=== PATIENT | female | born 1950 | race Caucasian/White ===

== ENCOUNTER → 2016-12-23 | Outpatient (CLI) | payer BC ==
[2016-12-23 09:39] LABS: BASO % 0.5 %; BASO ABS # 0.03 K/uL (0-0.2); COMPLETE YES; EOS % 3.7 %; HEMATOCRIT 38.2 % (37-47); IG% 0.2 %; LYMPH ABS # 1.24 K/uL (1.2-3.4); MEAN CELL VOLUME 88.8 fL (80-100); MEAN CORPUSCULAR HGB CONC 33.8 g/dl (32-36); MEAN PLATELET VOLUME 10.3 fL (7.4-10.4); MONO % 8.1 %; NEUT % 66.5 %; PLATELET COUNT 255 K/uL (130-400); WHITE BLOOD COUNT 5.91 K/uL (4.8-10.8)
[2016-12-23 14:20] LABS: LYME DISEASE AB IGG NEG (NEG); LYME DISEASE AB IGM NEG (NEG)
== END | disposition home or self-care (01) ==
LOC: C.LAB 07:58
DX: M19.90 Unspecified osteoarthritis, unspecified site (principal)

== ENCOUNTER → 2017-02-18 | Outpatient (CLI) | payer BC ==
[2017-02-18 09:54] LABS: ESTIMATED AVERAGE GLUCOSE 126 mg/dl; HA1C FLAG Normal (Normal)
[2017-02-18 09:56] LABS: ALT/SGPT 19 U/L (12-78); AST/SGOT 17 U/L (15-37); BLOOD UREA NITROGEN 11 mg/dl (7-18); BUN/CREATININE RATIO 13.3 (10-20); CALCIUM 9.3 mg/dl (8.5-10.1); CARBON DIOXIDE 28 mmol/L (21-32); CHLORIDE 106 mmol/L (98-107); CREATININE 0.83 mg/dl (0.60-1.20); GLUCOSE 105 mg/dl (70-99); POTASSIUM 4.3 mmol/L (3.5-5.1); SODIUM 142 mmol/L (136-145)
== END | disposition home or self-care (01) ==
LOC: C.LAB 08:02
DX: E88.81 Metabolic syndrome and other insulin resistance (principal); E78.5 Hyperlipidemia, unspecified

== ENCOUNTER → 2017-08-17 | Outpatient (CLI) | payer BC | END | disposition home or self-care (01) | LOC: C.PAPS 12:39 | PROVIDERS: ATTEND Obstetrics & Gynecology | DX: Z01.419 Encounter for gynecological examination (general) (routine) without abnormal findings (principal); N95.2 Postmenopausal atrophic vaginitis ==

== ENCOUNTER → 2017-08-17 | Outpatient (CLI) | payer BC ==
[2017-08-17 11:39] LABS: URINE APPEARANCE TURBID (CLEAR); URINE BILIRUBIN NEG (NEG); URINE COLOR YELLOW; URINE EPITHELIAL CELL AUTO 0-5 /lpf (0-5); URINE NITRITE POS (NEG); URINE SPECIFIC GRAVITY 1.018 (1.000-1.030); UROBILINOGEN NEG (NEG)
[2017-08-17 11:43] LABS: MANUAL MICROSCOPIC REQUIRED? NO; REVIEW REQ? NO
== END | disposition home or self-care (01) ==
LOC: C.LABSPEC 11:12
PROVIDERS: ATTEND Obstetrics & Gynecology
DX: R39.9 Unspecified symptoms and signs involving the genitourinary system (principal)

== ENCOUNTER → 2017-08-31 | Outpatient (CLI) | payer BC ==
[2017-08-31 12:34] LABS: ESTIMATED AVERAGE GLUCOSE 128 mg/dl; HA1C FLAG Normal (Normal)
[2017-08-31 12:37] LABS: AST/SGOT 25 U/L (15-37); BLOOD UREA NITROGEN 8 mg/dl (7-18); BUN/CREATININE RATIO 11.1 (10-20); CALCIUM 9.4 mg/dl (8.5-10.1); CARBON DIOXIDE 29 mmol/L (21-32); CHLORIDE 107 mmol/L (98-107); CREATININE 0.76 mg/dl (0.60-1.20); GLUCOSE 95 mg/dl (70-99); POTASSIUM 4.1 mmol/L (3.5-5.1); SODIUM 141 mmol/L (136-145)
[2017-08-31 12:40] LABS: ALT/SGPT 20 U/L (12-78); CHOLESTEROL 116 mg/dl (0-200); CHOLESTEROL/HDL RATIO 2.3; HDL CHOLESTEROL 50 mg/dl; LDL CHOLESTEROL CALCULATED 52 mg/dl; TRIGLYCERIDES 72 mg/dl (0-150); VERY LOW DENSITY LIPOPROT CALC 14 mg/dl
== END | disposition home or self-care (01) ==
LOC: C.LAB 10:00
DX: E78.5 Hyperlipidemia, unspecified (principal); R73.9 Hyperglycemia, unspecified

== ENCOUNTER → 2017-10-03 | Outpatient (CLI) | payer BC ==
--- NOTE | 2017-10-04 07:42 | MAMMOGRAPHY REPORT ---
BILATERAL DIGITAL SCREENING MAMMOGRAM WITH CAD: 10/03/2017 CLINICAL HISTORY: Routine screening. Patient has no complaints. TECHNIQUE: Bilateral CC and MLO views were obtained. Current study was also evaluated with a Compute r Aided Detection (CAD) system. COMPARISON: Comparison is made to exams dated: 09/29/2016 mammogram, 09/18/2015 mammogram, 09/13/2014 mammogram, 09/11/2013 mammogram, 09/06/2012 mammogram, and 09/06/2011 mammogram - [facility]. BREAST COMPOSITION: The tissue of both breasts is heterogeneously dense, which may obscure small mas ses. FINDINGS: There are a few scattered benign rim and round microcalcifications in the breasts. No susp icious mass, architectural distortion or cluster of suspicious microcalcifications is seen. IMPRESSION: ACR BI-RADS CATEGORY 1: NEGATIVE There is no mammographic evidence of malignancy. A 1 year screening mammogram is recommended. The pa tient will receive written notification of the results. Approximately 10% of breast cancers are not detected with mammography. A negative mammographic report should not delay biopsy if a clinically suggestive mass is present. Angelica Madden M.D. ay/:10/03/2017 15:42:03 Machine Striper: Andie KING(R)(Lo)(BD), [facility] letter sent: Normal 1/2 BI-RADS Code: ACR BI-RADS Category 1: Negative
== END | disposition home or self-care (01) ==
LOC: C.MAMM 08:21
DX: Z12.31 Encounter for screening mammogram for malignant neoplasm of breast (principal)

== ENCOUNTER → 2018-02-28 | Outpatient (CLI) | payer BC ==
[2018-02-28 12:40] LABS: ALT/SGPT 19 U/L (12-78); AST/SGOT 20 U/L (15-37); BLOOD UREA NITROGEN 14 mg/dl (7-18); CALCIUM 9.3 mg/dl (8.5-10.1); CARBON DIOXIDE 31 mmol/L (21-32); CHOLESTEROL 123 mg/dl (0-200); CREATININE 0.91 mg/dl (0.60-1.20); GLUCOSE 101 mg/dl (70-99); POTASSIUM 4.1 mmol/L (3.5-5.1); SODIUM 138 mmol/L (136-145)
[2018-02-28 12:43] LABS: LDL CHOLESTEROL CALCULATED 57 mg/dl
== END | disposition home or self-care (01) ==
LOC: C.LAB 10:14
DX: E88.81 Metabolic syndrome and other insulin resistance (principal); E78.5 Hyperlipidemia, unspecified

== ENCOUNTER → 2018-04-06 | Outpatient (CLI) | payer BC | END | disposition home or self-care (01) | LOC: C.MAMM 15:25 | DX: M85.88 Other specified disorders of bone density and structure, other site (principal) ==

== ENCOUNTER 2024-01-27 02:36 | Observation (INO) ==
--- NOTE | 2024-01-27 02:50 | Emergency Department Note ---
Impression & Plan Acute cholecystitis, Chest pain, Abdominal pain, epigastric, Transaminitis ED Provider Note HISTORY OF PRESENT ILLNESS: Patient is a 73-year-old female presenting with chest pain. Patient reports that she developed substernal chest pain starting around 9 PM on 01/26/2024. Reports that she just thought it might have been due to her sports bra being too tight and she took her sports bra off at 11 PM and was still having the pain. Reports the pain was persistent throughout the night and at 1:30 AM she woke her daughter up. She denies any history of heart disease. Denies any history of cardiac stents. She is not on any anticoagulation. She was given 324 mg of aspirin and nitro prehospital and reports that her pain has gone down to a 3 out of 10. She states the pain is present when she tries to take a deep breath. Locates the pain to the substernal region without radiation. Denies any associated shortness of breath. She does report that she vomited when her daughter called 911 this evening. Denies any lightheadedness or dizziness. Denies any abdominal pain. Denies any DVT or PE history. She does not take any medications other than vitamins daily. Denies any recent fevers or cough. ROS: as above PHYSICAL EXAM: Constitutional: Patient appears in no acute distress. HENT: Head: Normocephalic and atraumatic. Eyes: EOMI, PERRL Mouth/Throat: Mucous membranes moist. Neck: Trachea midline. Neck supple. Cardiovascular: RRR, No murmurs, rubs or gallops. Intact distal pulses. Pulmonary/Chest: No respiratory distress. Breath sounds clear and equal bilaterally. No wheezes or rales. Abdominal: Abdomen soft, no tenderness, rebound or guarding. Musculoskeletal: No edema, tenderness or deformity noted. Skin: Warm and dry. No rash, erythema, pallor or cyanosis Psychiatric: Appropriate mood and affect for situation. Neurological: Alert and keenly responsive. CN II-XII grossly intact, moving all extremities equally and fully. MDM: - Vitals signs stable. - History obtained via patient. History as above. - Chronic conditions affecting care: HLD; prediabetes - Differential diagnoses include, but are not limited to: Acute coronary syndrome; pulmonary embolism; dissection; tension pneumothorax; esophageal rupture; pneumonia - Order placed for continuous cardiac monitoring. At this time, monitor showed rate of 85 bpm with normal sinus rhythm, per my interpretation. - External medical records reviewed. Primary care visit note dated 11/28/2023 was reviewed. Patient has a history of prediabetes and hyperlipidemia. Patient is not currently on a statin given her low risk score per documentation. - EKG interpreted by myself showed normal sinus rhythm. Rate 78 bpm. QT 406. No acute ischemic changes. - Laboratory workup interpreted by myself showed slight leukocytosis (WBC 10.94) with left shift; stable electrolytes; normal PT/INR; elevated total bilirubin (1.2); transaminitis (AST 269; ALT 84); normal lipase - CXR negative for pneumonia, per my interpretation. Noted to have some perihilar opacities bilaterally - CT abdomen/pelvis with IV contrast obtained, given patient's symptoms and her transaminitis. CT showed diffuse gallbladder wall thickening wiht enhancement wihtin the wall and adjacent stranding concerning for acute cholecystitis. - IV zosyn ordered. - Low risk HEART score. - US RUQ showed cholelithiasis and findings concerning for acute cholecystitis. - Plan for admission to hospitalist service with general surgery consultation. - Discussion was had with insurance case manager about patient's case and need for admission - Hospitalist consulted for admission - Patient admitted to [facility] hospitalist service for further evaluation and management. ASSESSMENT AND PLAN: Diagnosis: acute cholecystitis; chest pain; epigastric pain; transaminitis Plan: admit Past Med/Surg History Medical History (Updated 01/27/24 @ 06:24 by Raquel Barker MD) Hyperlipidemia Osteopenia Prediabetes History of hepatitis B virus infection Abnormal mammogram Uterine leiomyoma Cervical dysplasia Surgical History History of tonsillectomy and adenoidectomy Family History Father Myocardial infarction Mother Aortic aneurysm Denies family history of Ovarian cancer Breast cancer Colorectal cancer Social History Smoking Status: Never smoker Do You Dip or Chew Tobacco: No; Hx Alcohol Use: Yes Hx Substance Use: No Preferred Language: Divehi Communication Ability: Effective marital status: Single Feels Safe at Home: Yes Seatbelt Use: always Allergies Allergies Allergy/AdvReac Type Severity Reaction Status Date / Time No Known Drug Allergies Allergy Unknown Uncoded 11/28/23 09:29 Home Meds Home Medications Medication Instructions Recorded Confirmed cholecalciferol (vitamin D3) 50 2,000 unit PO DAILY 08/04/19 01/27/24 mcg (2,000 unit) tablet Results & Data (ED) Vital Signs Vital Signs - 24 hr 01/27/24 02:42 01/27/24 02:44 01/27/24 02:45 Temperature 37.3 C Temperature Source Oral Pulse Rate 76 84 Pulse Rate from SpO2 Sensor Respiratory Rate 18 Respiratory Effort / Characteristics Non-Labored Spontaneous Respiratory Depth Normal Respiratory Pattern Regular Blood Pressure 132/79 Blood Pressure Mean 96 Blood Pressure Position Sitting Pulse Oximetry 95 96 Oxygen Delivery Method Room Air Room Air Sepsis Recent Fever Within 48 Hours No Sepsis New/Unexplained Change in Mental Status N/A Sepsis Action Taken by Nursing No Action Required 01/27/24 03:00 01/27/24 03:30 01/27/24 04:30 Temperature Temperature Source Pulse Rate 71 67 68 Pulse Rate from SpO2 Sensor 72 68 67 Respiratory Rate 19 16 13 Respiratory Effort / Characteristics Respiratory Depth Respiratory Pattern Blood Pressure 125/72 112/77 107/66 Blood Pressure Mean 89 88 79 Blood Pressure Position Pulse Oximetry 96 96 93 Oxygen Delivery Method Sepsis Recent Fever Within 48 Hours Sepsis New/Unexplained Change in Mental Status Sepsis Action Taken by Nursing 01/27/24 05:00 01/27/24 06:00 Temperature Temperature Source Pulse Rate 66 69 Pulse Rate from SpO2 Sensor 65 Respiratory Rate 18 21 Respiratory Effort / Characteristics Respiratory Depth Respiratory Pattern Blood Pressure 101/66 124/75 Blood Pressure Mean 77 91 Blood Pressure Position Pulse Oximetry 91 94 Oxygen Delivery Method Sepsis Recent Fever Within 48 Hours Sepsis New/Unexplained Change in Mental Status Sepsis Action Taken by Nursing Laboratory Data 01/27/24 02:05 01/27/24 02:05 Lab Results 01/27/24 Range/Units 02:05 WBC 10.94 H (4.8-10.8) K/ul RBC 4.81 (4.20-5.40) M/uL Hgb 13.9 (12.0-16.0) g/dl Hct 42.8 (37.0-47.0) % MCV 89.0 (80.0-100.0) fL MCH 28.9 (25.0-34.0) pg MCHC 32.5 (32.0-36.0) g/dL RDW Std Deviation 42.9 (36.4-46.3) fL RDW Coeff of Jessica 13.2 (11.5-14.5) % Plt Count 269 (130-400) K/uL MPV 10.2 (9.4-12.4) fL Immature Gran % (Auto) 0.5 % Neut % (Auto) 81.4 % Lymph % (Auto) 9.6 % [place] % (Auto) 6.6 % Eos % (Auto) 1.6 % Baso % (Auto) 0.3 % Neut # (Auto) 8.92 H (1.40-6.50) K/uL Lymph # (Auto) 1.05 L (1.20-3.40) K/uL [place] # (Auto) 0.72 H (0.11-0.59) K/uL Eos # (Auto) 0.17 (0.00-0.50) K/uL Baso # (Auto) 0.03 (0.00-0.20) K/uL Immature Gran # (Auto) 0.05 (0.01-0.20) K/uL PT 10.8 (9.0-12.0) Seconds INR 1.0 (0.9-1.1) Sodium 136 (136-145) mmol/L Potassium 4.0 (3.5-5.1) mmol/L Chloride 101 (98-107) mmol/L Carbon Dioxide 27 (21-32) mmol/L Anion Gap 8 (3-11) BUN 18 (6-23) mg/dl Creatinine 0.83 (0.6-1.2) mg/dl Est Cr Clr Drug Dosing 52.5 ml/min Est GFR ( Amer) 81.7 ml/min Est GFR (Non-Af Amer) 70.4 ml/min BUN/Creatinine Ratio 21.7 H (10-20) Glucose 156 H (70-99(Fasting)) mg/dl Calcium 9.4 (8.6-10.3) mg/dl Magnesium 1.9 (1.7-2.4) mg/dl Total Bilirubin 1.2 H (0.2-1.0) mg/dl AST 269 H (13-39) U/L ALT 84 H (7-52) U/L Alkaline Phosphatase 124 H (34-104) U/L Troponin I High Sens 6.9 (0-14) pg/ml Total Protein 7.2 (6.0-8.3) gm/dl Albumin 4.3 (3.4-5.0) gm/dl Globulin 2.9 (2.5-4.0) gm/dl Albumin/Globulin Ratio 1.5 (0.9-2) Lipase 36 (11-82) U/L Administered Medications Discontinued Medications Piperacillin Sod/Tazobactam Sod (Zosyn) 4.5 gm in 100 mls @ 200 mls/hr IV NOW ONE Stop: 01/27/24 05:28 Last Infusion: 01/27/24 06:02 Dose: Infused Documented By: Admin: 01/27/24 05:20 Dose: 200 mls/hr Documented By: ROMAN Ioversol (Optiray 320 100ml) 100 ml IV ONCE ONE Stop: 01/27/24 04:21 Last Admin: 01/27/24 04:20 Dose: 91 ml Documented By: KATRINA Imaging Data Radiologist's Impression: Abdomen/Pelvis CT 01/27/24 03:35 CR Exam(s): CT ABDOMEN + PELVIS With Contrast IV Amt: 91 ML OPTIRAY 320 EXAM: CT Abdomen and Pelvis With Intravenous Contrast CLINICAL HISTORY: Reason for exam: epigastric pain. TECHNIQUE: Axial computed tomography images of the abdomen and pelvis with intravenous contrast. Automated exposure control was utilized for the study. A dose lowering technique was utilized adhering to the principles of ALARA. CONTRAST: Patient received 91 ML OPTIRAY 320 of IV contrast COMPARISON: No relevant prior studies available. FINDINGS: Lung bases: Dependent atelectatic changes. ABDOMEN: Liver: Periportal edema in the liver which is a nonspecific finding. Gallbladder and bile ducts: Diffuse gallbladder wall thickening with enhancement within the wall. Additional adjacent stranding noted. Findings are favored to relate to cholecystitis. Consider surgical consultation. No evidence of biliary dilatation. Pancreas: Unremarkable. No mass. No ductal dilation. Spleen: Unremarkable. No splenomegaly. Adrenals: Unremarkable. No mass. Kidneys and ureters: Unremarkable. No solid mass. No hydronephrosis. Stomach and bowel: No evidence of bowel obstruction. Colonic diverticulosis. No evidence of diverticulitis. PELVIS: Appendix: Normal appendix. Bladder: Unremarkable. No mass. Reproductive: Unremarkable as visualized. ABDOMEN and PELVIS: Intraperitoneal space: Unremarkable. No free air. No significant fluid collection. Bones/joints: Prominent granulomas with some of which appear to show ossification, noted overlying the gluteal musculature and paraspinal musculature. Degenerative changes in the spine. No acute fracture. No dislocation. Soft tissues: Umbilical hernia containing fat. Vasculature: Atherosclerotic disease. No abdominal aortic aneurysm. Lymph nodes: Unremarkable. No enlarged lymph nodes. IMPRESSION: 1. Diffuse gallbladder wall thickening with enhancement within the wall. Additional adjacent stranding noted. Findings are favored to relate to cholecystitis. Consider surgical consultation. 2. No evidence of obstructive calculus identified. 3. No evidence of biliary dilatation. 4. Periportal edema in the liver which is a nonspecific finding. Correlation with any clinical signs of congestive heart failure or hepatitis may be helpful. Communications: Verify Receipt Electronically signed by: Arjun Singh MD 01/27/24 04:58 AM Gallbladder Ultrasound 01/27/24 04:59 Exam(s): US GALLBLADDER EXAM: US Abdomen Limited, Gallbladder CLINICAL HISTORY: Reason for exam: cholecystitis on CT. TECHNIQUE: Real-time ultrasound of the right upper quadrant with image documentation. COMPARISON: No relevant prior studies available. FINDINGS: Liver: The liver measures 14.6 cm in length. Gallbladder: Gallbladder wall thickness measures up to 6 mm. Cholelithiasis. Common bile duct: The common duct measures up to 4 millimeters. No stones. No dilation. Pancreas: Unremarkable as visualized. Other findings: Prior CT abdomen/pelvis January 27, 2024. IMPRESSION: Cholelithiasis with findings which can be seen with cholecystitis, as seen on prior CT. Recommend HIDA imaging if there is further concern. Electronically signed by: Arjun Singh MD 01/27/24 06:31 AM Discharge Plan Visit Data Chief Complaint: Chest Pain ED Provider: Raquel Barker Discharge Problem: Acute cholecystitis, Chest pain, Abdominal pain, epigastric, Transaminitis Forms Stand Alone Forms: Domob Prescriptions Prescriptions: No Action cholecalciferol (vitamin D3) 2,000 unit tablet 2,000 unit PO DAILY Referrals Referrals: Ale Hsu MD [Primary Care Provider] -
[2024-01-27 03:09] LABS: Basophils # (auto) 0.03 K/uL (0.00-0.20); Basophils % (auto) 0.3 %; Eosinophils # (auto) 0.17 K/uL (0.00-0.50); Eosinophils % (auto) 1.6 %; Hematocrit (blood only) 42.8 % (37.0-47.0); Hemoglobin 13.9 g/dl (12.0-16.0); Immature Granulocytes # (auto) 0.05 K/uL (0.01-0.20); Immature Granulocytes % (auto) 0.5 %; Lymphocytes # (auto) 1.05 K/uL (1.20-3.40); Lymphocytes % (auto) 9.6 %; Mean Corpuscular Hemoglobin 28.9 pg (25.0-34.0); Mean Corpuscular Hgb Conc 32.5 g/dL (32.0-36.0); Mean Platelet Volume 10.2 fL (9.4-12.4); Monocytes # (auto) 0.72 K/uL (0.11-0.59); Monocytes % (auto) 6.6 %; Neutrophils # (auto) 8.92 K/uL (1.40-6.50); Neutrophils % (auto) 81.4 %; Platelet Count 269 K/uL (130-400); RDW Coefficient of Variation 13.2 % (11.5-14.5); RDW Standard Deviation 42.9 fL (36.4-46.3); Red Blood Count 4.81 M/uL (4.20-5.40); White Blood Count 10.94 K/ul (4.8-10.8)
[2024-01-27 03:27] LABS: Albumin Globulin Ratio 1.5 (0.9-2); Albumin Level 4.3 gm/dl (3.4-5.0); BUN Creatinine Ratio 21.7 (10-20); Bilirubin,Total 1.2 mg/dl (0.2-1.0); Calcium 9.4 mg/dl (8.6-10.3); Creatinine Clr Calc Pharmacy 52.5 ml/min; Est GFR (African American) 81.7 ml/min; Est GFR (Non-African American) 70.4 ml/min; Globulin 2.9 gm/dl (2.5-4.0); Magnesium 1.9 mg/dl (1.7-2.4); Total Protein 7.2 gm/dl (6.0-8.3)
[2024-01-27 03:33] LABS: Troponin I High Sensitivity 6.9 pg/ml (0-14)
[2024-01-27 03:41] LABS: Prothrombin Time 10.8 Seconds (9.0-12.0)
[2024-01-27] MEDS: OPTIRAY 320 100ml IV ONE (04:20)
--- NOTE | 2024-01-27 05:00 | CT Scan Report ---
Exam(s): CT ABDOMEN + PELVIS With Contrast IV Amt: 91 ML OPTIRAY 320 EXAM: CT Abdomen and Pelvis With Intravenous Contrast CLINICAL HISTORY: Reason for exam: epigastric pain. TECHNIQUE: Axial computed tomography images of the abdomen and pelvis with intravenous contrast. Automated exposure control was utilized for the study. A dose lowering technique was utilized adhering to the principles of ALARA. CONTRAST: Patient received 91 ML OPTIRAY 320 of IV contrast COMPARISON: No relevant prior studies available. FINDINGS: Lung bases: Dependent atelectatic changes. ABDOMEN: Liver: Periportal edema in the liver which is a nonspecific finding. Gallbladder and bile ducts: Diffuse gallbladder wall thickening with enhancement within the wall. Additional adjacent stranding noted. Findings are favored to relate to cholecystitis. Consider surgical consultation. No evidence of biliary dilatation. Pancreas: Unremarkable. No mass. No ductal dilation. Spleen: Unremarkable. No splenomegaly. Adrenals: Unremarkable. No mass. Kidneys and ureters: Unremarkable. No solid mass. No hydronephrosis. Stomach and bowel: No evidence of bowel obstruction. Colonic diverticulosis. No evidence of diverticulitis. PELVIS: Appendix: Normal appendix. Bladder: Unremarkable. No mass. Reproductive: Unremarkable as visualized. ABDOMEN and PELVIS: Intraperitoneal space: Unremarkable. No free air. No significant fluid collection. Bones/joints: Prominent granulomas with some of which appear to show ossification, noted overlying the gluteal musculature and paraspinal musculature. Degenerative changes in the spine. No acute fracture. No dislocation. Soft tissues: Umbilical hernia containing fat. Vasculature: Atherosclerotic disease. No abdominal aortic aneurysm. Lymph nodes: Unremarkable. No enlarged lymph nodes. IMPRESSION: 1. Diffuse gallbladder wall thickening with enhancement within the wall. Additional adjacent stranding noted. Findings are favored to relate to cholecystitis. Consider surgical consultation. 2. No evidence of obstructive calculus identified. 3. No evidence of biliary dilatation. 4. Periportal edema in the liver which is a nonspecific finding. Correlation with any clinical signs of congestive heart failure or hepatitis may be helpful. Communications: Verify Receipt Electronically signed by: Arjun Singh MD 01/27/24 04:58 AM
[2024-01-27] MEDS: PIPERACILLIN/TAZOBACTAM 4.5 GM/100 ML BAG IV ONE (05:20)
--- NOTE | 2024-01-27 06:32 | Ultrasound Report ---
Exam(s): US GALLBLADDER EXAM: US Abdomen Limited, Gallbladder CLINICAL HISTORY: Reason for exam: cholecystitis on CT. TECHNIQUE: Real-time ultrasound of the right upper quadrant with image documentation. COMPARISON: No relevant prior studies available. FINDINGS: Liver: The liver measures 14.6 cm in length. Gallbladder: Gallbladder wall thickness measures up to 6 mm. Cholelithiasis. Common bile duct: The common duct measures up to 4 millimeters. No stones. No dilation. Pancreas: Unremarkable as visualized. Other findings: Prior CT abdomen/pelvis January 27, 2024. IMPRESSION: Cholelithiasis with findings which can be seen with cholecystitis, as seen on prior CT. Recommend HIDA imaging if there is further concern. Electronically signed by: Arjun Singh MD 01/27/24 06:31 AM
--- NOTE | 2024-01-27 06:38 | XRay Report ---
XR chest 1V portable HISTORY: 73 years-old Female Chest pain, nonspecific COMPARISON: 06/05/2020 TECHNIQUE: AP view of the chest FINDINGS: Cardiomediastinal and hilar silhouettes are within normal limits. No pneumothorax, pleural effusion, airspace consolidation or pulmonary edema. Bones of the chest appear grossly intact. IMPRESSION: No acute process. ACT 112: Negative or not required by law. The above report was generated using voice recognition software. It may contain grammatical, syntax o r spelling errors. Electronically signed by: Nile Saab M.D. 01/27/2024 6:37 AM
--- NOTE | 2024-01-27 06:48 | History & Physical Report ---
Date of Service January 27, 2024 Assessment & Plan (1) Transaminitis: (2) Abdominal pain, epigastric: (3) Acute cholecystitis: (4) Prediabetes: (5) History of hepatitis B virus infection: (6) Hyperglycemia: Plan Transaminitis/epigastric abdominal pain/elevated LFTs- CT scan abdomen pelvis and gallbladder ultrasound are suggestive of possible acute cholecystitis Gallbladder ultrasound reading suggests confirmation with HIDA scan if indicated NPO Zosyn 4.5 g IV every 8 hours Zofran 4 mg IV every 6 hours as needed Pantoprazole 40 mg IV daily NSS + KCl 20 mill equivalents at 100 mL/h Consult general surgery Patient reports a history of hepatitis B treatment 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 Will check an acute hepatitis panel due to notation of periportal edema Hyperglycemia/history of prediabetes- Glucose 156 on admission Check hemoglobin A1c Defer routine Accu-Cheks for now History of Present Illness Chief Complaint: The patient presents to the emergency department with the acute onset of substernal chest discomfort around 9:00 this evening, shortly after eating a bowl of ice cream, that felt more like it was her sports bra being too tight. The pain continued through the evening, and then around 130 this morning, she woke her daughter up and her daughter then called 911, and the patient is was brought to the emergency department for assessment. She does report that while her daughter was on the phone, she did have 1 episode of nausea and vomiting. She reports normal bowel and urinary function. She became concerned enough to come to the emergency department due to a family history of her father dying young of a heart attack, and her mother of a aortic aneurysm. Primary Care Provider: Ale Hsu MD The patient is a 73-year-old female with past medical history including prediabetes, hepatitis B virus infection treated in the hospital about 40 years ago, osteopenia and hyperlipidemia. The patient presents to the emergency department as noted above. Allergies Allergy/AdvReac Type Severity Reaction Status Date / Time No Known Drug Allergies Allergy Unknown Uncoded 11/28/23 09:29 Home Medications Medication Instructions Recorded Confirmed Type cholecalciferol (vitamin D3) 50 2,000 unit PO DAILY 08/04/19 01/27/24 History mcg (2,000 unit) tablet Past Med/Surg History Medical History (Updated 03/08/24 @ 06:44 by Sam Grove MD) Hyperlipidemia Osteopenia Prediabetes History of hepatitis B virus infection Abnormal mammogram Uterine leiomyoma Cervical dysplasia Surgical History History of tonsillectomy and adenoidectomy Family History Father Myocardial infarction Mother Aortic aneurysm Denies family history of Ovarian cancer Breast cancer Colorectal cancer Social History Smoking Status: Never smoker Do You Dip or Chew Tobacco: No; Hx Alcohol Use: Yes Hx Substance Use: No Preferred Language: Kittitian Communication Ability: Effective marital status: Single Feels Safe at Home: Yes Seatbelt Use: always Review of Systems Review of Systems: The patient denies palpitations, shortness of breath, dyspnea on exertion, cough, lower extremity swelling, sore throat, fevers, chills, sweats, weight change, fatigue, diarrhea , constipation, pelvic pain, blood in urine or stool, dysuria, urinary frequency or urgency, lightheadedness, dizziness, headache, memory loss, loss of consciousness, rash, abnormal bruising or bleeding, imbalance, focal or generalized weakness, numbness or tingling in arms or legs, generalized arthralgias or myalgias, back or neck pain, or night sweats. The review of systems is otherwise negative other than for that already noted above, and at least 10 systems have been reviewed. Physical Exam Physical Exam: The patient is awake, alert and oriented 3, well developed and well nourished, normocephalic and atraumatic, lying in bed and in no acute distress. HEENT--PERRL, EOMI, mucous membranes and oropharynx normal. Neck--supple. No JVD. No bruits. Thyroid normal, trachea midline, no adenopathy. Heart--normal S1 and S2. No murmurs, rubs or gallops. Lungs--clear bilaterally, no respiratory distress, no accessory muscle use. Abdomen--normal bowel sounds and soft. Nontender. Nondistended Extremities--No edema Dermatologic--normal skin turgor, normal color, no abnormal lymph nodes, no rash. Neurologic--cranial nerves II through XII grossly intact. Rheumatologic--normal range of motion. Psychiatric--normal affect. Results & Data Results & Data Vital Signs (Past 12 Hours) Vital Signs Temp Pulse Resp BP Pulse Ox O2 Del Method 01/27/24 06:29 64 01/27/24 06:00 69 21 124/75 94 01/27/24 05:00 66 18 101/66 91 01/27/24 04:30 68 13 107/66 93 01/27/24 03:30 67 16 112/77 96 01/27/24 03:00 71 19 125/72 96 01/27/24 02:45 96 Room Air 01/27/24 02:44 37.3 C 84 18 132/79 95 Room Air 01/27/24 02:42 76 Laboratory Results Laboratory Results WBC 10.94 K/ul (4.8-10.8) H 01/27/24 02:05 RBC 4.81 M/uL (4.20-5.40) 01/27/24 02:05 Hgb 13.9 g/dl (12.0-16.0) 01/27/24 02:05 Hct 42.8 % (37.0-47.0) 01/27/24 02:05 MCV 89.0 fL (80.0-100.0) 01/27/24 02:05 MCH 28.9 pg (25.0-34.0) 01/27/24 02:05 MCHC 32.5 g/dL (32.0-36.0) 01/27/24 02:05 RDW Std Deviation 42.9 fL (36.4-46.3) 01/27/24 02:05 RDW Coeff of Jessica 13.2 % (11.5-14.5) 01/27/24 02:05 Plt Count 269 K/uL (130-400) 01/27/24 02:05 MPV 10.2 fL (9.4-12.4) 01/27/24 02:05 Immature Gran % (Auto) 0.5 % 01/27/24 02:05 Neut % (Auto) 81.4 % 01/27/24 02:05 Lymph % (Auto) 9.6 % 01/27/24 02:05 [place] % (Auto) 6.6 % 01/27/24 02:05 Eos % (Auto) 1.6 % 01/27/24 02:05 Baso % (Auto) 0.3 % 01/27/24 02:05 Neut # (Auto) 8.92 K/uL (1.40-6.50) H 01/27/24 02:05 Lymph # (Auto) 1.05 K/uL (1.20-3.40) L 01/27/24 02:05 [place] # (Auto) 0.72 K/uL (0.11-0.59) H 01/27/24 02:05 Eos # (Auto) 0.17 K/uL (0.00-0.50) 01/27/24 02:05 Baso # (Auto) 0.03 K/uL (0.00-0.20) 01/27/24 02:05 Immature Gran # (Auto) 0.05 K/uL (0.01-0.20) 01/27/24 02:05 PT 10.8 Seconds (9.0-12.0) 01/27/24 02:05 INR 1.0 (0.9-1.1) 01/27/24 02:05 Sodium 136 mmol/L (136-145) 01/27/24 02:05 Potassium 4.0 mmol/L (3.5-5.1) 01/27/24 02:05 Chloride 101 mmol/L (98-107) 01/27/24 02:05 Carbon Dioxide 27 mmol/L (21-32) 01/27/24 02:05 Anion Gap 8 (3-11) 01/27/24 02:05 BUN 18 mg/dl (6-23) 01/27/24 02:05 Creatinine 0.83 mg/dl (0.6-1.2) 01/27/24 02:05 Est Cr Clr Drug Dosing 52.5 ml/min 01/27/24 02:05 Est GFR ( Amer) 81.7 ml/min 01/27/24 02:05 Est GFR (Non-Af Amer) 70.4 ml/min 01/27/24 02:05 BUN/Creatinine Ratio 21.7 (10-20) H 01/27/24 02:05 Glucose 156 mg/dl (70-99(Fasting)) H 01/27/24 02:05 Calcium 9.4 mg/dl (8.6-10.3) 01/27/24 02:05 Magnesium 1.9 mg/dl (1.7-2.4) 01/27/24 02:05 Total Bilirubin 1.2 mg/dl (0.2-1.0) H 01/27/24 02:05 AST 269 U/L (13-39) H 01/27/24 02:05 ALT 84 U/L (7-52) H 01/27/24 02:05 Alkaline Phosphatase 124 U/L (34-104) H 01/27/24 02:05 Troponin I High Sens 6.9 pg/ml (0-14) 01/27/24 02:05 Total Protein 7.2 gm/dl (6.0-8.3) 01/27/24 02:05 Albumin 4.3 gm/dl (3.4-5.0) 01/27/24 02:05 Globulin 2.9 gm/dl (2.5-4.0) 01/27/24 02:05 Albumin/Globulin Ratio 1.5 (0.9-2) 01/27/24 02:05 Lipase 36 U/L (11-82) 01/27/24 02:05 Impressions Chest X-Ray 01/27/24 02:41 XR chest 1V portable HISTORY: 73 years-old Female Chest pain, nonspecific COMPARISON: 06/05/2020 TECHNIQUE: AP view of the chest FINDINGS: Cardiomediastinal and hilar silhouettes are within normal limits. No pneumothorax, pleural effusion, airspace consolidation or pulmonary edema. Bones of the chest appear grossly intact. IMPRESSION: No acute process. ACT 112: Negative or not required by law. The above report was generated using voice recognition software. It may contain grammatical, syntax or spelling errors. Electronically signed by: Nile Saab M.D. 01/27/2024 6:37 AM Abdomen/Pelvis CT 01/27/24 03:35 CR Exam(s): CT ABDOMEN + PELVIS With Contrast IV Amt: 91 ML OPTIRAY 320 EXAM: CT Abdomen and Pelvis With Intravenous Contrast CLINICAL HISTORY: Reason for exam: epigastric pain. TECHNIQUE: Axial computed tomography images of the abdomen and pelvis with intravenous contrast. Automated exposure control was utilized for the study. A dose lowering technique was utilized adhering to the principles of ALARA. CONTRAST: Patient received 91 ML OPTIRAY 320 of IV contrast COMPARISON: No relevant prior studies available. FINDINGS: Lung bases: Dependent atelectatic changes. ABDOMEN: Liver: Periportal edema in the liver which is a nonspecific finding. Gallbladder and bile ducts: Diffuse gallbladder wall thickening with enhancement within the wall. Additional adjacent stranding noted. Findings are favored to relate to cholecystitis. Consider surgical consultation. No evidence of biliary dilatation. Pancreas: Unremarkable. No mass. No ductal dilation. Spleen: Unremarkable. No splenomegaly. Adrenals: Unremarkable. No mass. Kidneys and ureters: Unremarkable. No solid mass. No hydronephrosis. Stomach and bowel: No evidence of bowel obstruction. Colonic diverticulosis. No evidence of diverticulitis. PELVIS: Appendix: Normal appendix. Bladder: Unremarkable. No mass. Reproductive: Unremarkable as visualized. ABDOMEN and PELVIS: Intraperitoneal space: Unremarkable. No free air. No significant fluid collection. Bones/joints: Prominent granulomas with some of which appear to show ossification, noted overlying the gluteal musculature and paraspinal musculature. Degenerative changes in the spine. No acute fracture. No dislocation. Soft tissues: Umbilical hernia containing fat. Vasculature: Atherosclerotic disease. No abdominal aortic aneurysm. Lymph nodes: Unremarkable. No enlarged lymph nodes. IMPRESSION: 1. Diffuse gallbladder wall thickening with enhancement within the wall. Additional adjacent stranding noted. Findings are favored to relate to cholecystitis. Consider surgical consultation. 2. No evidence of obstructive calculus identified. 3. No evidence of biliary dilatation. 4. Periportal edema in the liver which is a nonspecific finding. Correlation with any clinical signs of congestive heart failure or hepatitis may be helpful. Communications: Verify Receipt Electronically signed by: Arjun Singh MD 01/27/24 04:58 AM Gallbladder Ultrasound 01/27/24 04:59 Exam(s): US GALLBLADDER EXAM: US Abdomen Limited, Gallbladder CLINICAL HISTORY: Reason for exam: cholecystitis on CT. TECHNIQUE: Real-time ultrasound of the right upper quadrant with image documentation. COMPARISON: No relevant prior studies available. FINDINGS: Liver: The liver measures 14.6 cm in length. Gallbladder: Gallbladder wall thickness measures up to 6 mm. Cholelithiasis. Common bile duct: The common duct measures up to 4 millimeters. No stones. No dilation. Pancreas: Unremarkable as visualized. Other findings: Prior CT abdomen/pelvis January 27, 2024. IMPRESSION: Cholelithiasis with findings which can be seen with cholecystitis, as seen on prior CT. Recommend HIDA imaging if there is further concern. Electronically signed by: Arjun Singh MD 01/27/24 06:31 AM Code Status & VTE Plan Code Status Full code VTE Prophylaxis Plan VTE Prophylaxis will be ordered: Yes PG Care Time/CCT Total # of Minutes Spent Total Time Spent with Patient: Total time spent is greater than 50% in coordination of care (as documented) at patient's floor/unit and/or counseling patient: Coding Level of Care Code 32148 INT INP/OBS CARE 2/55MIN Diagnoses Transaminitis R74.01 Abdominal pain, epigastric R10.13 Acute cholecystitis K81.0 Prediabetes R73.03 History of hepatitis B virus infection Z86.19 Hyperglycemia R73.9
[2024-01-27 08:57] LABS: Estimated Average Glucose 128 mg/dl; Hemoglobin A1C 6.1 % (4.5-5.6)
--- NOTE | 2024-01-27 09:35 | Surgery Consultation ---
Date of Consultation January 27, 2024 Assessment & Plan (1) Abdominal pain, epigastric: This is a 73yF with a PMH of hepatitis B who presents to the [facility] ED on 01/27/24 with complaints of lower chest pain and pain with deep breaths. The patient states her pain started around 10pm last night, located in lower chest over sternum region, rating the pain a 7/10 in severity. She was concerned it felt cardiac in nature and due to symptoms called EMS and presented to our ER for further evaluation. In the ER she underwent a CT a/p that revealed diffuse gallbladder wall thickening with enhancement within the wall, no obstructing calculus and no biliary dilation. Thereafter a RUQ US was obtained that showed cholelithiasis with findings which can be seen with cholecystitis, as seen on prior CT. Appears symptoms occurred after eating beef stroganoff and ice cream in the evening. Some nausea with 1x bout of emesis. No issues like this before. EKG okay. Labs show WBC 10, Tb: 1.2, AST 269, ALT 84, Alkp 124. Hepatitis labs pending. Vital signs are stable and patient afebrile. On examination abdomen is soft, non distended, and non tender. Patient is feeling much better and denies any pain at the time of my interview. Findings are suspicious for gallbladder etiology, however she is now feeling much better and without symptoms. Would agree with pursuing HIDA scan to rule out acute myah before deciding on surgery as an inpatient vs. discussions for elective procedure if indicated as outpatient. We will follow up. (2) Transaminitis: Supervising Physician Co-Signing Physician Notes I personally saw and evaluated the patient with Vidya Rodriguez PA-C and agree with the assessment and plan. 73 yo female with cholelithiasis, US and CT findings with possible cholecystitis Her CT, US and HIDA images and results were personally viewed and interpreted by myself She has gallstones, but no HIDA negative for acute cholecystitis and has had resolution of her abdominal pain Her LFT's could be elevated for many reasons and with a normal caliber CBD on US, unlikely she has choledocholithiasis No plans for cholecystectomy at this point Will give her a diet and if she tolerates this she can be discharged and follow up with my as outpatient to discuss elective cholecystectomy Would have her follow up with her PCP next week with repeat LFT's Surgery will sign off at this time, please call with any questions or concerns History of Present Illness Reason for Consultation: Acute Cholecystitis Attending Physician: Edwina Antonio MD History of Present Illness This is a 73yF with a PMH of hepatitis B who presents to the [facility] ED on 01/27/24 with complaints of lower chest pain and pain with deep breaths. The patient states her pain started around 10pm last night, located in lower chest over sternum region, rating the pain a 7/10 in severity. This was worsened with deep breaths. She was unable to get comfortable enough to sleep. She was concerned it felt cardiac in nature and due to symptoms called EMS and presented to our ER for further evaluation. In the ER she underwent a CT a/p that revealed diffuse gallbladder wall thickening with enhancement within the wall, no obstructing calculus and no biliary dilation. Thereafter a RUQ US was obtained that showed cholelithiasis with findings which can be seen with cholecystitis, as seen on prior CT. Patient states she never experienced pain like this before. She last ate some beef stroganoff for dinner and ice cream thereafter around 9:30pm. She reported mild nausea with a bout of emesis. No SOB, fevers/chills, or changes in bowel habits. No previous issues with fatty, greasy/spicy foods. No prior ab dominal surgical history. Only takes vitamin D as far as medications. History of hepatitis B years ago. Allergies Allergy/AdvReac Type Severity Reaction Status Date / Time No Known Drug Allergies Allergy Unknown Verified 01/27/24 09:38 Home Medications Medication Instructions Recorded Confirmed Type cholecalciferol (vitamin D3) 50 2,000 unit PO DAILY 08/04/19 01/27/24 History mcg (2,000 unit) tablet Patient History Medical History Hyperlipidemia Osteopenia Prediabetes History of hepatitis B virus infection Abnormal mammogram Uterine leiomyoma Cervical dysplasia Surgical History History of tonsillectomy and adenoidectomy Family History Father Myocardial infarction Mother Aortic aneurysm Denies family history of Ovarian cancer Breast cancer Colorectal cancer Social History Smoking Status: Never smoker Do You Dip or Chew Tobacco: No; Hx Alcohol Use: Yes Hx Substance Use: No Preferred Language: Kiswahili Communication Ability: Effective marital status: Single Feels Safe at Home: Yes Seatbelt Use: always Review of Systems Constitutional: no fever and no chills Respiratory: + pain on inspiration Cardiovascular: Additional Comments: pain in lower chest Gastrointestinal: + nausea and + vomiting; no abdominal pa in, no bloating and no change in bowel habits Physical Exam Physical Exam: awake/alert, no distress Constitutional: well developed, well nourished and comfortable Respiratory: normal respiratory effort Cardiovascular: Rate/Rhythm: regular rate and regular rhythm Gastrointestinal (Abdomen): Inspection/Auscultation: abdomen not distended Percussion/Palpation: abdomen soft; abdomen nontender Results & Data Vital Signs (Past 12 Hours) Vital Signs Temp Pulse Resp BP Pulse Ox O2 Del Method 01/27/24 08:00 105/65 01/27/24 08:00 60 20 95 01/27/24 07:30 67 20 95 01/27/24 07:30 112/66 01/27/24 07:00 60 20 96 01/27/24 07:00 108/62 01/27/24 06:30 63 25 H 93 01/27/24 06:30 102/71 01/27/24 06:29 64 01/27/24 06:00 124/75 01/27/24 06:00 69 21 124/75 94 01/27/24 05:00 66 18 101/66 91 01/27/24 04:30 68 13 107/66 93 01/27/24 03:30 67 16 112/77 96 01/27/24 03:00 71 19 125/72 96 01/27/24 02:45 96 Room Air 01/27/24 02:44 99.1 F 84 18 132/79 95 Room Air 01/27/24 02:42 76 Diagnostic Findings Exam(s): US GALLBLADDER EXAM: US Abdomen Limited, Gallbladder CLINICAL HISTORY: Reason for exam: cholecystitis on CT. TECHNIQUE: Real-time ultrasound of the right upper quadrant with image documentation. COMPARISON: No relevant prior studies available. FINDINGS: Liver: The liver measures 14.6 cm in length. Gallbladder: Gallbladder wall thickness measures up to 6 mm. Cholelithiasis. Common bile duct: The common duct measures up to 4 millimeters. No stones. No dilation. Pancreas: Unremarkable as visualized. Other findings: Prior CT abdomen/pelvis January 27, 2024. IMPRESSION: Cholelithiasis with findings which can be seen with cholecystitis, as seen on prior CT. Recommend HIDA imaging if there is further concern. Electronically signed by: Arjun Singh MD 01/27/24 06:31 AM ADDENDUM ADDENDUM: 01/27/24 05:17 Verify Receipt Verified receipt with [facility] for Dr. Mulligan on 01/26 05:17 (-05:00) Electronically signed by: Arjun Singh MD Electronically signed by: Arjun Singh MD 01/27/24 04:58 AM ADDENDUM END Exam(s): CT ABDOMEN + PELVIS With Contrast IV Amt: 91 ML OPTIRAY 320 EXAM: CT Abdomen and Pelvis With Intravenous Contrast CLINICAL HISTORY: Reason for exam: epigastric pain. TECHNIQUE: Axial computed tomography images of the abdomen and pelvis with intravenous contrast. Automated exposure control was utilized for the study. A dose lowering technique was utilized adhering to the principles of ALARA. CONTRAST: Patient received 91 ML OPTIRAY 320 of IV contrast COMPARISON: No relevant prior studies available. FINDINGS: Lung bases: Dependent atelectatic changes. ABDOMEN: Liver: Periportal edema in the liver which is a nonspecific finding. Gallbladder and bile ducts: Diffuse gallbladder wall thickening with enhancement within the wall. Additional adjacent stranding noted. Findings are favored to relate to cholecystitis. Consider surgical consultation. No evidence of biliary dilatation. Pancreas: Unremarkable. No mass. No ductal dilation. Spleen: Unremarkable. No splenomegaly. Adrenals: Unremarkable. No mass. Kidneys and ureters: Unremarkable. No solid mass. No hydronephrosis. Stomach and bowel: No evidence of bowel obstruction. Colonic diverticulosis. No evidence of diverticulitis. PELVIS: Appendix: Normal appendix. Bladder: Unremarkable. No mass. Reproductive: Unremarkable as visualized. ABDOMEN and PELVIS: Intraperitoneal space: Unremarkable. No free air. No significant fluid collection. Bones/joints: Prominent granulomas with some of which appear to show ossification, noted overlying the gluteal musculature and paraspinal musculature. Degenerative changes in the spine. No acute fracture. No dislocation. Soft tissues: Umbilical hernia containing fat. Vasculature: Atherosclerotic disease. No abdominal aortic aneurysm. Lymph nodes: Unremarkable. No enlarged lymph nodes. IMPRESSION: 1. Diffuse gallbladder wall thickening with enhancement within the wall. Additional adjacent stranding noted. Findings are favored to relate to cholecystitis. Consider surgical consultation. 2. No evidence of obstructive calculus identified. 3. No evidence of biliary dilatation. 4. Periportal edema in the liver which is a nonspecific finding. Correlation with any clinical signs of congestive heart failure or hepatitis may be helpful. Communications: Verify Receipt Electronically signed by: Arjun Singh MD 01/27/24 04:58 AM PG Care Time/CCT Total # of Minutes Spent Total Time Spent with Patient: Total time spent is greater than 50% in coordination of care (as documented) at patient's floor/unit and/or counseling patient: Coding Level of Care Code 54249 INT INP/OBS CARE 2/55MIN Diagnoses Abdominal pain, epigastric R10.13 Transaminitis R74.01
[2024-01-27] MEDS ORDERED: ONDANSETRON INJ 2 MG/ML 2 ML VIAL IV PRN (10:05)
[2024-01-27] MEDS ORDERED: MoRPHine SULFATE 2 MG/ML CARP IV PRN (10:05)
[2024-01-27] MEDS ORDERED: MoRPHine SULFATE 4 MG/ML 1 ML CARP\\VIAL IV PRN (10:05)
--- NOTE | 2024-01-27 11:10 | Electrocardiogram Report ---
Test Reason : Blood Pressure : / mmHG Vent. Rate : 078 BPM Atrial Rate : 078 BPM P-R Int : 130 ms QRS Dur : 076 ms QT Int : 406 ms P-R-T Axes : 027 046 059 degrees QTc Int : 462 ms Normal sinus rhythm with sinus arrhythmia Normal ECG When compared with ECG of 16-OCT-2013 08:19, No significant change was found Confirmed by Benito Palma ([id number]) on 01/27/2024 11:10:38 AM Referred By: REFERRED SELF Confirmed By:Benito Palma
--- NOTE | 2024-01-27 11:59 | Nuclear Medicine Report ---
NM hepatobiliary EF CLINICAL HISTORY: abnormal CT A/P and Gallbladder US with TECHNIQUE: Following the intravenous injection of 5.5 mCi of Tc-99m labeled Technetium 99m mebrofeni n, multiple images of the upper abdomen were obtained in the anterior projection with uptake measurem ents of the gallbladder obtained. Once the gallbladder and small bowel were visualized, the patient w as intravenously infused over 30 minutes with 0.02 mcg/kg of Sincalide (CCK), and imaging and uptakes were again obtained. Comparison: Comparison is made to CT abdomen pelvis 01/27/2024 FINDINGS: Sequential images demonstrate normal uptake in the liver, common bile duct, gallbladder, an d small bowel. No defects in uptake are identified. Subsequent imaging after the administration of si ncalide demonstrates prompt elimination of the radiotracer from the gallbladder. The calculated gallbladder ejection fraction based on uptake measurements is 16%. IMPRESSION: There is opacification of the gallbladder, rendering acute cholecystitis unlikely. However there is i mpaired excretion compatible with gallbladder dysfunction. Reference: Normal gallbladder ejection fraction is greater than 33%. ACT 112: Negative or not required by law. Electronically signed by: Vinicio Roberson M.D. 01/27/2024 11:56 AM
[2024-01-27] MEDS: PANTOprazole 40 MG in SYRINGE 0 ML IV SCH (12:18)
[2024-01-27] MEDS: SODIUM CHLORIDE 0.9% IV ONE (12:32)
[2024-01-27] MEDS: SINCALIDE IV ONE (12:32)
[2024-01-27] MEDS: PIPERACILLIN/TAZOBACTAM 4.5 GM in DEXTROSE 5% MINI-B 100 ML IV SCH (12:33)
[2024-01-27] MEDS: NSS + 20MEQ KCL 20 MEQ/1,000 ML BAG IV SCH (12:40)
--- NOTE | 2024-01-27 17:11 | Discharge Summary ---
Date of Service January 27, 2024 Admission HPI Per Admitting Provider The patient is a 73-year-old female with past medical history including prediabetes, hepatitis B virus infection treated in the hospital about 40 years ago, osteopenia and hyperlipidemia. The patient presents to the emergency department as noted above. Principal Diagnosis right upper quadrant pain, resolved, elevated LFTs, cholelithiasis, potentially passed gallstone Discharge Exam PHYSICAL EXAMINATION Last 24h vital signs reviewed, see documentation in flowsheet General: comfortable appearing, no distress HEENT: Normocephalic, atraumatic, pupils round and equal, sclerae anicteric, no conjunctival injection, moist mucus membranes Lungs: Normal respiratory effort. Clear to auscultation bilaterally. No RRW Heart: Regular rate and rhythm, no murmurs. No JVD Abdomen: Soft, nontender, nondistended. No RUQ tenderness. Bowel sounds present. Extremities: Warm, dry, well-perfused. No extremity edema. Neuro: Alert and oriented x 4, face symmetric, moves 4 extremities well Psych: Normal affect and behavior Discharge Data Allergies Allergy/AdvReac Type Severity Reaction Status Date / Time No Known Drug Allergies Allergy Unknown Verified 01/27/24 09:38 Consultations 01/27/24 05:57 ED Decision to Admit Stat 01/27/24 07:52 Consult General Surgery Stat Ordered Studies 01/27/24 03:35 CT Abd and Pelvis [CT abd pelvis IV con only] Stat 01/27/24 04:59 US gallbladder Stat Chest X-Ray 01/27/24 02:41 XR chest 1V portable HISTORY: 73 years-old Female Chest pain, nonspecific COMPARISON: 06/05/2020 TECHNIQUE: AP view of the chest FINDINGS: Cardiomediastinal and hilar silhouettes are within normal limits. No pneumothorax, pleural effusion, airspace consolidation or pulmonary edema. Bones of the chest appear grossly intact. IMPRESSION: No acute process. ACT 112: Negative or not required by law. The above report was generated using voice recognition software. It may contain grammatical, syntax or spelling errors. Electronically signed by: Nile Saab M.D. 01/27/2024 6:37 AM Abdomen/Pelvis CT 01/27/24 03:35 CR Exam(s): CT ABDOMEN + PELVIS With Contrast IV Amt: 91 ML OPTIRAY 320 EXAM: CT Abdomen and Pelvis With Intravenous Contrast CLINICAL HISTORY: Reason for exam: epigastric pain. TECHNIQUE: Axial computed tomography images of the abdomen and pelvis with intravenous contrast. Automated exposure control was utilized for the study. A dose lowering technique was utilized adhering to the principles of ALARA. CONTRAST: Patient received 91 ML OPTIRAY 320 of IV contrast COMPARISON: No relevant prior studies available. FINDINGS: Lung bases: Dependent atelectatic changes. ABDOMEN: Liver: Periportal edema in the liver which is a nonspecific finding. Gallbladder and bile ducts: Diffuse gallbladder wall thickening with enhancement within the wall. Additional adjacent stranding noted. Findings are favored to relate to cholecystitis. Consider surgical consultation. No evidence of biliary dilatation. Pancreas: Unremarkable. No mass. No ductal dilation. Spleen: Unremarkable. No splenomegaly. Adrenals: Unremarkable. No mass. Kidneys and ureters: Unremarkable. No solid mass. No hydronephrosis. Stomach and bowel: No evidence of bowel obstruction. Colonic diverticulosis. No evidence of diverticulitis. PELVIS: Appendix: Normal appendix. Bladder: Unremarkable. No mass. Reproductive: Unremarkable as visualized. ABDOMEN and PELVIS: Intraperitoneal space: Unremarkable. No free air. No significant fluid collection. Bones/joints: Prominent granulomas with some of which appear to show ossification, noted overlying the gluteal musculature and paraspinal musculature. Degenerative changes in the spine. No acute fracture. No dislocation. Soft tissues: Umbilical hernia containing fat. Vasculature: Atherosclerotic disease. No abdominal aortic aneurysm. Lymph nodes: Unremarkable. No enlarged lymph nodes. IMPRESSION: 1. Diffuse gallbladder wall thickening with enhancement within the wall. Additional adjacent stranding noted. Findings are favored to relate to cholecystitis. Consider surgical consultation. 2. No evidence of obstructive calculus identified. 3. No evidence of biliary dilatation. 4. Periportal edema in the liver which is a nonspecific finding. Correlation with any clinical signs of congestive heart failure or hepatitis may be helpful. Communications: Verify Receipt Electronically signed by: Arjun Singh MD 01/27/24 04:58 AM Gallbladder Ultrasound 01/27/24 04:59 Exam(s): US GALLBLADDER EXAM: US Abdomen Limited, Gallbladder CLINICAL HISTORY: Reason for exam: cholecystitis on CT. TECHNIQUE: Real-time ultrasound of the right upper quadrant with image documentation. COMPARISON: No relevant prior studies available. FINDINGS: Liver: The liver measures 14.6 cm in length. Gallbladder: Gallbladder wall thickness measures up to 6 mm. Cholelithiasis. Common bile duct: The common duct measures up to 4 millimeters. No stones. No dilation. Pancreas: Unremarkable as visualized. Other findings: Prior CT abdomen/pelvis January 27, 2024. IMPRESSION: Cholelithiasis with findings which can be seen with cholecystitis, as seen on prior CT. Recommend HIDA imaging if there is further concern. Electronically signed by: Arjun Singh MD 01/27/24 06:31 AM Hepatobiliary Scan Nuclear Medicine 01/27/24 06:42 NM hepatobiliary EF CLINICAL HISTORY: abnormal CT A/P and Gallbladder US with TECHNIQUE: Following the intravenous injection of 5.5 mCi of Tc-99m labeled Technetium 99m mebrofenin, multiple images of the upper abdomen were obtained in the anterior projection with uptake measurements of the gallbladder obtained. On ce the gallbladder and small bowel were visualized, the patient was intravenously infused over 30 minutes with 0.02 mcg/kg of Sincalide (CCK), and imaging and uptakes were again obtained. Comparison: Comparison is made to CT abdomen pelvis 01/27/2024 FINDINGS: Sequential images demonstrate normal uptake in the liver, common bile duct, gallbladder, and small bowel. No defects in uptake are identified. Subsequent imaging after the administration of sincalide demonstrates prompt elimination of the radiotracer from the gallbladder. The calculated gallbladder ejection fraction based on uptake measurements is 16%. IMPRESSION: There is opacification of the gallbladder, rendering acute cholecystitis unlikely. However there is impaired excretion compatible with gallbladder dysfunction. Reference: Normal gallbladder ejection fraction is greater than 33%. ACT 112: Negative or not required by law. Electronically signed by: Vinicio Roberson M.D. 01/27/2024 11:56 AM 01/27/24 01/27/24 Range/Units 06:45 02:05 WBC 10.94 H (4.8-10.8) K/ul RBC 4.81 (4.20-5.40) M/uL Hgb 13.9 (12.0-16.0) g/dl Hct 42.8 (37.0-47.0) % MCV 89.0 (80.0-100.0) fL MCH 28.9 (25.0-34.0) pg MCHC 32.5 (32.0-36.0) g/dL RDW Std Deviation 42.9 (36.4-46.3) fL RDW Coeff of Jessica 13.2 (11.5-14.5) % Plt Count 269 (130-400) K/uL MPV 10.2 (9.4-12.4) fL Immature Gran % (Auto) 0.5 % Neut % (Auto) 81.4 % Lymph % (Auto) 9.6 % [place] % (Auto) 6.6 % Eos % (Auto) 1.6 % Baso % (Auto) 0.3 % Neut # (Auto) 8.92 H (1.40-6.50) K/uL Lymph # (Auto) 1.05 L (1.20-3.40) K/uL [place] # (Auto) 0.72 H (0.11-0.59) K/uL Eos # (Auto) 0.17 (0.00-0.50) K/uL Baso # (Auto) 0.03 (0.00-0.20) K/uL Immature Gran # (Auto) 0.05 (0.01-0.20) K/uL PT 10.8 (9.0-12.0) Seconds INR 1.0 (0.9-1.1) Sodium 136 (136-145) mmol/L Potassium 4.0 (3.5-5.1) mmol/L Chloride 101 (98-107) mmol/L Carbon Dioxide 27 (21-32) mmol/L Anion Gap 8 (3-11) BUN 18 (6-23) mg/dl Creatinine 0.83 (0.6-1.2) mg/dl Est Cr Clr Drug Dosing 52.5 ml/min Est GFR ( Amer) 81.7 ml/min Est GFR (Non-Af Amer) 70.4 ml/min BUN/Creatinine Ratio 21.7 H (10-20) Glucose 156 H (70-99(Fasting)) mg/dl Estimat Average Glucose 128 mg/dl Hemoglobin A1c 6.1 H (4.5-5.6) % Calcium 9.4 (8.6-10.3) mg/dl Magnesium 1.9 (1.7-2.4) mg/dl Total Bilirubin 1.2 H (0.2-1.0) mg/dl AST 269 H (13-39) U/L ALT 84 H (7-52) U/L Alkaline Phosphatase 124 H (34-104) U/L Troponin I High Sens 6.9 (0-14) pg/ml Total Protein 7.2 (6.0-8.3) gm/dl Albumin 4.3 (3.4-5.0) gm/dl Globulin 2.9 (2.5-4.0) gm/dl Albumin/Globulin Ratio 1.5 (0.9-2) Lipase 36 (11-82) U/L Hepatitis A IgM Ab Pending Hep Bs Antigen Pending Hep Bs Ag Confirmation Pending Hep B Core IgM Ab Pending Hepatitis C Ab (EIA) Pending Hospital Course (1) RUQ abdominal pain: 73 y/o presented with right upper quadrant pain and mild elevation of bilirubin, AST/ALT and alk phos. CT abdomen and pelvis and RUQ ultrasound suggestive of possible acute cholecystitis, gallstones present on ultrasound, madhu biliary dilation. Pain completely resolved overnight. General surgeon Dr. Negron consulted and HIDA scan was obtained. Gallbladder opacified normally on HIDA making cholecystitis unlikely. Dr. Negron thought potentially passed a gallstone (vs other etiology for elevated LFT), discussed with surgical team, recommended follow up in office next week to consider cholecystectomy and repeat LFT in 1 week (ordered and communicated to primary care). Tolerated low fat diet with no recurrence of pain. Discussed return precautions. Admitting EKG was normal and troponin negative. No dyspnea, hypoxia, leg swelling/pain or persistent pain to suggest PE. (2) Transaminitis: Mild, most recent previous LFT normal 05/03. Imaging, exam, history not concerning for cirrhosis. Not using significant alcohol. Admitting team sent acute hepatitis panel for Hep A/B/C but acute viral B or C very unlikely and pattern and symptomatology do not fit with hepatits A. Not on any medications. Other viral infection can cause mild LFT elevation but has no symptoms of URI or gastroenteritis and seems more likely related to gallstone disease -repeat CMP ordered as outpatient in 1 week Reports being treated for hepatitis B 40 years ago - unclear what this means since antivirals not available at that time, acute B would have been treated with supportive care and usually asymptomatic. -follow up HBV serologies -refer for treatment if found to have chronic HBV or HCV (3) Prediabetes: mild A1c elevation, followed for this in primary care (4) History of hepatitis B virus infection: see above (5) Cholelithiasis: see above Total Time Total Time Spent Total Time Spent (In Minutes): I spent 40 minutes on clinical care including reviewing chart notes, vitals, studies, communicating with marketing database consultant, examining and counseling patient, writing discharge orders, communication with primary care team, documentation. This is in addition to time spent by admitting physician this morning. Discharge Plan Discharge Items Patient Disposition: Home - Self-Care Reason For Visit: acute cholecystitis Discharge Diagnosis: RUQ abdominal pain, cholelithiasis, possibly passed gallstone Condition on Discharge: Good Activity: Resume your previous activity Non-emergency contact: Primary Care Provider and Surgeon Call non-emergency contact if: you have any medication questions, your symptoms worsen and you have a fever Follow-up/Referrals: Jason Negron, [Physician] - (You may call the office to schedule an appointment to discuss the possibility of elective gallbladder surgery on an outpatient basis) Ale Hsu MD [Primary Care Provider] - 02/01/24 9:00 am (with Sabina Powell) Diet: Low Fat Ambulatory Orders: Comprehensive Metabolic Panel (Routine) Timeframe: 1 Week Location: Determined by Patient Ordered By: Edwina Vazquez Attending Provider Instructions: You were evaluated for right upper abdominal pain which resolved Acute cholecystitis was considered, however, pain resolved and HIDA scan did not show cholecystitis It seems likely you passed a gallstone Please have your labs checked in a week (I ordered these for the [facility] outpatient lab) and follow up with primary care (liver tests), hepatitis B and C tests are pending. Follow up with Dr. Negron next week to check in and discuss gallbladder surgery Return to the ED if you develop significant recurrent abdominal pain, nausea vomiting or fever Pending Studies at Discharge: Yes Stand-Alone Forms: My [facility] [employer], Smoking Cessation Medications and DC Order Prescriptions: Continued cholecalciferol (vitamin D3) 2,000 unit tablet 2,000 unit PO DAILY Discharge Orders: Discharge Order (Routine); Ordered 01/27/24 Ordered By: Edwina Antonio Admission Data Admit Date/Time: 01/27/24 06:35 Attending Provider: Edwina Antonio Admit Provider: Sam Grove Primary Care Provider: Ale Hsu Other Providers: Sam Grove; Jason Negron Other Interventions: Discharge Summary Assessment (RN) Last Done: 01/27/24 15:43 Coding Level of Care Code INP/OBS EV SAME DAY LV 2,70MIN Diagnoses RUQ abdominal pain R10.11 Transaminitis R74.01 Prediabetes R73.03 History of hepatitis B virus infection Z86.19 Cholelithiasis K80.20
[2024-01-28 11:42] LABS: HBSAG NON-REACTIVE (NON-REACTIVE); Hepatitis A Antibody IgM NON-REACTIVE (NON-REACTIVE); Hepatitis B Core Antibody IgM NON-REACTIVE (NON-REACTIVE)
== END 2024-01-27 16:03 | disposition home or self-care (01) ==
LOC: SUATTDRO → ED 02:36 → INTOOBSV 06:35 → 3N 06:35